=== PATIENT | female | born 1950 | race Caucasian/White ===

== ENCOUNTER 2017-01-30 12:24 | Observation (INO) ==
[2017-01-30] MEDS ORDERED: 0.9 % Sodium Chloride 1,000 ML IVC ONE (12:49)
--- NOTE | 2017-01-30 13:14 | Emergency Department Note ---
Disposition Clinical Impression: Focal neurological deficit TIA (transient ischemic attack) Qualifiers: Transient cerebral ischemia type: unspecified Qualified Code(s): G45.9 - Transient cerebral ischemic attack, unspecified Disposition: Admitted As Inpatient Condition: Fair Time of Disposition: 17:40 Neuro HPI - General Chief Complaint: ED Neuro Symptoms/Deficit Stated Complaint: left sided numbness Time Seen by Provider: 01/30/17 12:27 Source: patient, EMS Limitations: no limitations Nursing Notes Reviewed: Yes Vital Signs Reviewed: Yes - History of Present Illness HPI Narrative: Patient is 66-year-old female who had onset of left arm numbness 2 hours ago. Patient went to urgent care and was sent to the emergency department by EMS. Patient states she never had symptoms like this before. Symptoms came on while patient was at work. Patient is assessed at bedside and has resolution of symptoms upon arrival. NIH score is 0 - Related Data Home Medications: Home Medications Medication Instructions Recorded Confirmed Atorvastatin Calcium [Lipitor] 20 mg PO DAILY 01/30/17 01/30/17 Levothyroxine [Synthroid] 50 mcg PO DAILY 01/30/17 01/30/17 Allergies/Adverse Reactions: Allergies Allergy/AdvReac Type Severity Reaction Status Date / Time No Known Allergies Allergy Verified 01/30/17 11:51 All systems ED: reviewed and negative except as stated. Review of Systems: As Per HPI Constitutional: Denies: fever, chills, weakness, weight change Eyes: Denies: eye pain, eye discharge, vision change ENT ED: Denies: congestion Cardiovascular: Denies: chest pain, palpitations, dyspnea on exertion, edema, syncope Respiratory: Denies: cough, dyspnea, wheezes, hemoptysis, stridor Gastrointestinal: Denies: abdominal pain, nausea, vomiting Genitourinary: Denies: urgency, dysuria Musculoskeletal: Denies: back pain Neurological: Reports: numbness, paresthesias. Denies: headache Endocrine: Denies: fatigue Hematological/Lymphatic: Denies: easy bleeding Past Medical History - Past Medical History Attestation: Yes The following information was validated with the patient. Source: patient Medical history: Reports: hyperlipidemia, thyroid disease Psychiatric history: Reports: no psych history - Social History Smoking Status: Never smoker Smokeless Tobacco Status: No Alcohol use: Reports: none Drug use: Reports: none Physical Exam - General Limitations: no limitations General appearance: alert, in no apparent distress - Head Head exam: atraumatic, normocephalic, normal inspection - Eye Eye exam: Present: normal appearance, PERRL, EOMI - ENT ENT exam: normal exam, normal oropharynx, mucous membranes moist - Neck Neck exam: Present: normal inspection, full ROM, trachea midline - Chest Chest inspection: Present: normal inspection, symmetric chest wall rise - Respiratory Respiratory exam: Present: normal lung sounds bilaterally - Cardiovascular Cardiovascular exam: Present: regular rate, normal rhythm, normal heart sounds - Abdominal Exam Abdominal exam: Present: soft, Non-Tender. Absent: tenderness, distention, guarding, rebound, rigidity - Extremities Exam Extremities exam: Present: normal inspection, full ROM. Absent: tenderness, pedal edema - Back Exam Back exam: Present: normal inspection, full ROM. Absent: tenderness, CVA tenderness (R), CVA tenderness (L) - Neurological Exam Neurological exam: Present: alert, oriented X3 - Skin Skin exam: Present: warm, dry, intact, normal color Course - Reevaluation(s) Reevaluation #1: CT head ordered, CBC, BMP, troponin and EKG ordered chest x-ray Time: 12:33 Reevaluation #2: Patient has sudden onset of left upper extremity weakness and decreased sensation as well as in the left lower extremity with pronator drift without foot hit in the bed. Patient has NIH stroke score of 2. Stroke alert called Time: 12:45 Reevaluation #3: Patient states that she does not want to be transferred. She and likely evaluated here. - Consultations Consultation #1: Stroke alert examination by [facility] Dr. Augustus Estrada, who states that he does not think patient's having a stroke. He is unsure of what the patient is having with recurrence of symptoms. He does not recommend TPA at this time. He states that if patient needs to be evaluated by them they more than happy to evaluate her. Time: 12:58 Consultation #2: Dr. Mace neg stroke negative for hemorrhage findings only for arachnoid cyst most likely old been there long time. Time: 13:19 Consultation #3: Dr. Mejia the hospitalist accepted patient for admission Time: 15:00 Vital Signs Temperature 97.9 F 01/30/17 12:26 Pulse Rate 56 01/30/17 12:26 Respiratory Rate 16 01/30/17 12:26 Blood Pressure 196/102 01/30/17 12:26 O2 Sat by Pulse Oximetry 100 01/30/17 12:26 Temperature 97.7 F 01/30/17 18:41 Pulse Rate 53 01/30/17 18:41 Respiratory Rate 12 01/30/17 18:41 Blood Pressure 177/81 01/30/17 18:41 O2 Sat by Pulse Oximetry 97 01/30/17 18:41 Oxygen Delivery Oxygen Delivery Room Air Neuro Symptoms/Deficit - MDM Narrative Medical decision making narrative: Patient presented with acute onset of numbness to left upper extremity. When received by emergency department patient had no symptoms with INH score 0. Patient's symptoms started 2 large prior. At 1245 hrs. patient had new onset of left upper and left lower extremity numbness with weakness and pronator drift with an NIH score of 2. Stroke alert was called. The patient was sent to CT. Patient was evaluated by [facility]. Decision for TPA was not recommended. Neurologist Dr. Estrada stated that he was not sure of this was a stroke given patient's pattern of symptoms with earlier resolution and then reappearance and then resolution again during evaluation. Patient is given the choice to go to [facility] she was staying here. Patient opted to stay here for evaluation. Patient was admitted for CVA TIA versus stroke and admitted for further evaluation and workup. - Lab Data Result diagrams: 01/30/17 13:22 01/30/17 13:22 Lab Results 01/30/17 01/30/17 01/30/17 Range/Units 12:28 13:22 13:22 WBC 9.5 (4.3-11.1) K/mcL RBC 4.94 (3.82-4.97) M/mcL Hgb 13.5 (11.5-15.4) g/dL Hct 42.4 (35.3-44.9) % MCV 85.8 (83.0-100.0) fL MCH 27.3 L (28.0-33.3) pg MCHC 31.8 (31.6-35.5) g/dL RDW 14.2 (11.5-14.5) % Plt Count 344 (140-400) K/mcL MPV 9.2 L (9.4-12.4) fL Immature Gran % 0.3 (0-4) % Seg Neutrophils % 81.6 % Lymphocytes % 13.7 % Monocytes % 3.8 % Eosinophils % 0.3 % Basophils % 0.3 % Neutrophils # 7.7 (1.6-8.9) K/mcL Lymphocytes # 1.3 (0.6-4.6) K/mcL Monocytes # 0.4 (0.0-1.3) K/mcL Eosinophils # 0.0 (0.0-0.6) K/mcL Basophils # 0.0 (0.0-0.2) K/mcL Sodium 136 (136-145) mEq/L Potassium 3.9 (3.5-4.5) mEq/L Chloride 102 (98-109) mEq/L Carbon Dioxide 28 (19-29) mEq/L BUN 26 H (7-20) mg/dL Creatinine 0.76 (0.57-1.11) mg/dL Est GFR ( Amer) > 60 (> 60) Est GFR (Non-Af Amer) > 60 (> 60) BUN/Creatinine Ratio 34 H (6-26) Glucose 104 H (70-99) mg/dL POC Glucose 100 H (58-89) Calculated Osmolality 287 (280-300) Calcium 10.0 (8.6-10.8) mg/dL Troponin I (0-0.03) ng/mL 01/30/17 Range/Units 13:22 WBC (4.3-11.1) K/mcL RBC (3.82-4.97) M/mcL Hgb (11.5-15.4) g/dL Hct (35.3-44.9) % MCV (83.0-100.0) fL MCH (28.0-33.3) pg MCHC (31.6-35.5) g/dL RDW (11.5-14.5) % Plt Count (140-400) K/mcL MPV (9.4-12.4) fL Immature Gran % (0-4) % Seg Neutrophils % % Lymphocytes % % Monocytes % % Eosinophils % % Basophils % % Neutrophils # (1.6-8.9) K/mcL Lymphocytes # (0.6-4.6) K/mcL Monocytes # (0.0-1.3) K/mcL Eosinophils # (0.0-0.6) K/mcL Basophils # (0.0-0.2) K/mcL Sodium (136-145) mEq/L Potassium (3.5-4.5) mEq/L Chloride (98-109) mEq/L Carbon Dioxide (19-29) mEq/L BUN (7-20) mg/dL Creatinine (0.57-1.11) mg/dL Est GFR ( Amer) (> 60) Est GFR (Non-Af Amer) (> 60) BUN/Creatinine Ratio (6-26) Glucose (70-99) mg/dL POC Glucose (58-89) Calculated Osmolality (280-300) Calcium (8.6-10.8) mg/dL Troponin I 0.00 (0-0.03) ng/mL - EKG Data EKG attestation: Yes I reviewed and interpreted this EKG. EKG results narrative: EKG taken 01/30/2017 at 12:30 7R shows sinus bradycardia at a rate of 55 beats minute no acute ST elevations or depressions in leads, no QRS widening or QT prolongation, no Wellens, brugada, or scarbosa, and no S1Q3T3. No previous old EKGs for comparison. 12-lead performed by EMS shows sinus rhythm at a rate of 58 beats a minute and he ST elevations or depressions in leads no signs ischemia. NIH Stroke Scale - Level of Consciousness LOC: Alert - LOC Questions LOC Questions: Answers both correctly - LOC Commands LOC Commands: Performs both correctly - Best Gaze Best Gaze: Normal - Visual Visual: No visual loss - Facial Palsy Facial Palsy: Normal - Motor Arms Motor Arm-Left: No drift for 10 seconds Motor Arm-Right: No drift for 10 seconds - Motor Legs Motor Leg-Left: Drift, does NOT hit bed Motor Leg-Right: No drift for 5 seconds - Limb Ataxia Limb Ataxia: Absent of affected limb too weak to perform exam - Sensory Sensory: Mild to moderate loss, "not as sharp" - Best Language Best Language: No aphasia - Dysarthria Dysarthria: Normal - Extinction and Inattention Extinction and Inattention: Normal - NIHSS Total Score NIHSS Total Score: 2 TPA Checklist - LKW: 3-4.5 hrs Add. Warnings/Precautions Patient/family understanding: The patient/family members have been counseled and understood the risk, benefit , and alternatives of treatment.
[2017-01-30 13:33] LABS: Basophils % 0.3 %; Eosinophils % 0.3 %; Hematocrit 42.4 % (35.3-44.9); Hemoglobin 13.5 g/dL (11.5-15.4); Immature Granulocytes % 0.3 % (0-4); Lymphocytes # 1.3 K/mcL (0.6-4.6); Lymphocytes % 13.7 %; Mean Corpuscular HGB Conc 31.8 g/dL (31.6-35.5); Mean Corpuscular Hemoglobin 27.3 pg (28.0-33.3); Mean Corpuscular Volume 85.8 fL (83.0-100.0); Mean Platelet Volume 9.2 fL (9.4-12.4); Monocytes # 0.4 K/mcL (0.0-1.3); Monocytes % 3.8 %; Neutrophils # 7.7 K/mcL (1.6-8.9); Platelet Count 344 K/mcL (140-400); Red Blood Count 4.94 M/mcL (3.82-4.97); Red Cell Distribution Width 14.2 % (11.5-14.5); Segmented Neutrophils % 81.6 %
[2017-01-30 13:42] LABS: BUN/Creatinine Ratio 34 (6-26); Blood Urea Nitrogen 26 mg/dL (7-20); Carbon Dioxide 28 mEq/L (19-29); Chloride 102 mEq/L (98-109); Glucose 104 mg/dL (70-99); Osmolality,Calculated 287 (280-300); Potassium 3.9 mEq/L (3.5-4.5); Sodium 136 mEq/L (136-145); eGFR For African Americans > 60 (> 60); eGFR For Non-African Americans > 60 (> 60)
[2017-01-30] MEDS ORDERED: Ondansetron 4 MG/2 ML VIAL IVP PRN (16:17)
[2017-01-30] MEDS ORDERED: Naloxone 0.4 MG/ML INJ IVP PRN (16:17)
[2017-01-30] MEDS ORDERED: Acetaminophen 325 MG TABLET PO PRN (16:17)
--- NOTE | 2017-01-30 16:33 | Internal Med History&Physical ---
Date of Encounter: 01/30/17 Time of Encounter: 16:25 Assessment and Plan (1) Paresthesia and pain of left extremity Current visit: Yes Status: Acute Patient had sudden onset of left-sided paresthesia both left arm and left leg as well extending up to the left side of her face, symptoms come and go. - Stroke alert was called she was seen by enterocele physician the TPA at this time continued workup- CT of her head was negative, we will obtain MRI MRA of head and neck 2 we will obtain cardiac echo 3 carotid Dopplers 4 neuro checks 5 fall precautions 6 trend cardiac troponins 7 continue his cardiac monitoring 8 lipid profile continue a statin 9 continue with aspirin (2) Hypothyroid Current visit: No Status: Chronic Continue with Synthroid Qualifiers: Hypothyroidism type: unspecified Qualified Code(s): E03.9 - Hypothyroidism , unspecified (3) DVT prophylaxis Current visit: No Status: Chronic Lovenox subcutaneous Internal Medicine - H&P: HPI Chief complaint: Numbness and tingling Admitted From: Emergency Dept Plans for Post Hospital Care: Home History of present illness: Ms. Miranad is a 66 year old female past medical history of hypothyroid DJD hypercholesterolemia, family history of aneurysm. According to the patient she has been her usual state of health complete her normal ADLs this a.m. She was at her place of employment and was working at her desk when approximately at 10 AM she began to experience left-sided numbness and tingling. She feels as if her arm was asleep and there were pins and needles. She did get up to attempt to ambulate the sensation continued she did experience some shortness of breath midsternal chest tightness and lightheadedness. She did lie down on the floor and rested. Her symptoms subsided for a few minutes, however they returned she states she did have some difficulty speaking and her coworkers became concerned and encouraged her to be evaluated. She went to an urgent care that transported her to ER for evaluation. Once arriving to the ER patient did have an elevated blood pressure 190 systolic. She had sudden onset of left upper axillary weakness and decreased sensation as well as lower extremity pronator drift. NIH score was 2 stroke alert was called. Stroke alert examination completed by [facility] physician who advised that he did not think the patient was having a stroke and did not recommend TPA at this time. Recommends further workup. CT of head negative for hemorrhage findings only arachnoid cyst which is old. Lab work was unremarkable troponin was 0 EKG was sinus bradycardia no ST-T wave abnormalities. She has been admitted for further workup and evaluation. Presently the patient is ambulating around the room without difficulty Romberg was negative cranial nerves II through XII are intact she is alert and appropriate no slurred speech no facial droop no pronator drift. She does complain of complete left sided numbness and tingling from her face all the way down to her feet. Describing it as pins and needles. Her lung sounds are clear heart sounds are regular S1 and S2 with no rubs clicks, murmurs noted abdomen soft and nontender no pedal edema. She has equal strength in all 4 extremities. She is hemodynamically stable at this time. I reviewed this case with Dr. Banuelos who agrees with plan. Past Med Surg Social Fam HX - Past Medical History Medical history: hyperlipidemia, thyroid disease Psychiatric history: no psych history - Social History Smoking Status: Never smoker Smokeless Tobacco Status: No Alcohol use: none Drug use: none - Family History Father Living Status: Cause of : HTN Mother Living Status: Still Living Hx Family Cardiac Disorders: Yes (Hypertension stroke) Internal Medicine - H&P: Meds Atorvastatin Calcium [Lipitor] 20 mg PO DAILY 01/30/17 [History] Levothyroxine [Synthroid] 50 mcg PO DAILY 01/30/17 [History] 3 Allergy/AdvReac Type Severity Reaction Status Date / Time No Known Allergies Allergy Verified 01/30/17 11:51 All Systems PM: A 10-system review of systems was performed and is negative for pertinent findings except as documented above in the HPI. - Constitutional Constitutional: no chills, no fever(s), no night sweats - EENT Eyes: no change in vision, no discharge, no pain, no photophobia Nose, mouth and throat: as per HPI - Cardiovascular Cardiovascular ROS IM: chest pain, no diaphoresis, no dyspnea, no lightheadedness, no palpitations, no syncope - Respiratory Respiratory: dyspnea, no cough, no wheezing, no excessive phlegm production - Gastrointestinal Gastrointestinal: no abdominal pain, no diarrhea, no hematemesis, no hematochezia, no melena, no nausea, no vomiting - Genitourinary Genitourinary: no change in urinary stream, no dysuria, no flank pain, no hematuria - Musculoskeletal Musculoskeletal ROS IM: tingling, no numbness - Neurological Neurological ROS: numbness, paresthesias, tingling - Hematologic/Lymphatic Hematologic/Lymphatic: no easy bruising - Constitutional Vitals: Temp Pulse Resp BP Pulse Ox 98.0 F 55 16 173/82 98 01/30/17 16:22 01/30/17 16:22 01/30/17 16:22 01/30/17 16:22 01/30/17 16:22 General appearance: Present: A&O X 3, answers questions appropriately - Head Head exam: Present: atraumatic, normocephalic - Eye Eye exam: Present: PERRL, conjuntiva pink, sclera anicteric Pupils: Present: PERRL - Neck Neck exam general surgery: Present: supple, trachea midline. Absent: lymphadenopathy - Respiratory Respiratory exam: Present: CTAB. Absent: accessory muscle use, rales, rhonchi, wheezes - Cardiovascular Cardiovascular exam: Present: RRR, +S1, +S2. Absent: diastolic murmur, gallop, rubs, systolic murmur - GI/Abdominal GI/Abdominal exam: Present: normal bowel sounds, soft, no peritoneal signs. Absent: distended, tenderness - Extremities Exam Extremities exam: Present: warm, radial pulses palpable and symmetrical. Absent : calf tenderness, cyanotic, pedal edema - Neurological Exam Neurological exam: Present: alert, CN II-XII intact, normal gait, oriented X3, no focal deficits, strengths equal and symetr throughout. Absent: pronater drift, facial droop, speech deficit - Skin Skin exam: Present: dry, intact Internal Med - H&P Results - Labs CBC & Chem 7: 01/30/17 13:22 01/30/17 13:22 - EKG Data EKG shows normal: sinus rhythm Rate: bradycardia - EKG Data Prior EKG available for review: no - Diagnostic Studies Other Images Additional comments: Head CT 01/30/17 12:27 IMPRESSION: 1. No acute intracranial abnormality. 2. 3.4 cm focus of CSF attenuation within the extra-axial space of the left middle cranial fossa, most consistent with a benign arachnoid cyst. Findings were discussed with Carlos Mayer at 1:20 pm on 01/30/2017. D/ / Cristian Gatica MD / Cristian Gatica MD Interpreting Provider: Cristian Gatica MD Chest X-Ray 01/30/17 12:51 IMPRESSION: No acute cardiopulmonary findings. D/ / Camille Childers MD / Camille Childers MD Interpreting Provider: Camille Childers MD
--- NOTE | 2017-01-30 16:52 | Emergency Department Note ---
START Narrative - START START: I examined this patient and my medical decision-making was reviewed with the Resident Physician. I agree with the documented findings, disposition and treatment plan as described except to the extent set forth below. Transient neurologic symptoms and will resolve on arrival, the recurred, and spontaneously resolved again. NIH stroke score of 0 at the time of admission. Dx TIA.
[2017-01-30] MEDS ORDERED: Aspirin 325 MG TABLET PO ONE (20:49)
--- NOTE | 2017-01-30 21:04 | Event Note ---
Date of Encounter: 01/30/17 Time of Encounter: 20:58 MRI/MRA of head was completed notified as per nursing staff that patient has a cute microinfarct within the milagros. Present her blood pressure is 177/81 she continues to experience paresthesia. I did notify Dr. Stanley he states he will see the patient tomorrow and continue with aspirin and statin for now. I also updated Dr. Horton change of condition
[2017-01-31 05:06] LABS: Basophils % 0.3 %; Eosinophils # 0.2 K/mcL (0.0-0.6); Eosinophils % 2.5 %; Hematocrit 36.2 % (35.3-44.9); Immature Granulocytes % 0.3 % (0-4); Lymphocytes # 2.3 K/mcL (0.6-4.6); Lymphocytes % 33.1 %; Mean Corpuscular HGB Conc 32.6 g/dL (31.6-35.5); Mean Corpuscular Hemoglobin 28.1 pg (28.0-33.3); Mean Corpuscular Volume 86.2 fL (83.0-100.0); Mean Platelet Volume 9.6 fL (9.4-12.4); Monocytes # 0.5 K/mcL (0.0-1.3); Monocytes % 7.5 %; Neutrophils # 3.9 K/mcL (1.6-8.9); Platelet Count 306 K/mcL (140-400); Red Cell Distribution Width 14.4 % (11.5-14.5); Segmented Neutrophils % 56.3 %
[2017-01-31 05:15] LABS: Hemoglobin 11.8 g/dL (11.5-15.4)
[2017-01-31 05:27] LABS: BUN/Creatinine Ratio 24 (6-26); Blood Urea Nitrogen 17 mg/dL (7-20); Calcium 8.8 mg/dL (8.6-10.8); Carbon Dioxide 24 mEq/L (19-29); Chloride 109 mEq/L (98-109); Chol/HDL Ratio 2.3 (0-4.9); Cholesterol 127 mg/dL (< 200); Glucose 112 mg/dL (70-99); HDL Cholesterol 55 mg/dL (40-59); LDL Cholesterol,Calculated 64 mg/dL (0-99); Osmolality,Calculated 294 (280-300); Potassium 3.4 mEq/L (3.5-4.5); Sodium 141 mEq/L (136-145); Triglycerides 41 mg/dL (< 150); eGFR For African Americans > 60 (> 60); eGFR For Non-African Americans > 60 (> 60)
[2017-01-31] MEDS ORDERED: *HR* Enoxaparin 40 MG/0.4 ML SYRINGE SQ SCH (07:00)
--- NOTE | 2017-01-31 07:04 | Carotid Imaging Report ---
Carotid Duplex Patient Name:Thania Miranda Order Number:[id number] Procedure Date:01/30/2017 Date:1950ge:66 yrs Gender:Female Lt BP:173 / 82 mmHg Rt.BP:173 / 82 mmHgHeart Rate: Location:[facility] Room #: 3B32 Tour Agent:Elizabeth Banks ZACH Referring MD:Leigh Ann Hargrove CNP rpg programmer analyst:Raymond Peters MD Reading MD:Sadi Clemente MD Primary Indications:Numbness tingling on left side Risk Factors Yes/No Hypercholesterolemia Impressions: The right internal carotid artery has a 60-79% stenosis. The left carotid artery is normal throughout. Recommendations: Risk factor reduction. Further evaluation recommended if clinically indicated. Follow-up carotid duplex in 1 year. Findings Carotid Duplex: Right: There is nonstenotic plaque in the right proximal internal carotid artery. There is smooth heterogeneous plaque. There is 40-59% stenosis in the right mid internal carotid artery. There is smooth homogeneous plaque. There is 60-79% stenosis in the right distal internal carotid artery. There is smooth homogeneous plaque. Prior Study: No prior study available for comparison. Carotid Results Right PSV EDV Assessment Proximal CCA 76 12 Normal Mid CCA 70 17 Normal Distal CCA 50 14 Normal Bifurcation 46 14 Normal Proximal ICA 49 16 Non Stenotic Plaque Mid ICA 124 37 40-59% stenosis Distal ICA 140 44 60-79% stenosis ECA 66 9 Normal Vertebral Artery 66 17 Antegrade Flow Left PSV EDV Assessment Proximal CCA 76 18 Normal Mid CCA 63 16 Normal Distal CCA 58 19 Normal Bifurcation 60 20 Normal Proximal ICA 46 19 Normal Mid ICA 77 30 Normal Distal ICA 106 40 Normal ECA 67 9 Normal Vertebral Artery 79 24 Antegrade Flow Ratio's Right ICA/CCA Ratio: 2.00 ICA/CCA Values: 140/70 Left ICA/CCA Ratio: 1.68 ICA/CCA Values: 106/63 Updated by Sadi Clemente MD on 01/31/2017 6:59:44 AM electronically signed on 01/31/2017 6:59:55 AM with status of Final
[2017-01-31] MEDS ORDERED: Aspirin 81 MG TAB.CHEW PO SCH (09:00)
--- NOTE | 2017-01-31 13:04 | Neurology - Consult Note ---
Date of Encounter: 01/31/17 Time of Encounter: 13:00 Assessment and Plan (1) Brainstem infarct, acute Current Visit: Yes Status: Acute It is my impression that her acute symptoms are due to the acute infarct in the right milagros. I suspect that the event occurred due to reactive vasospasm associated with the extreme hypertension. There is however a discrepancy between the carotid Doppler study; which reveals 60-79% stenosis of the right internal carotid artery, the MRA scan of the neck makes no mention of stenosis. I feel however that it is reasonable to believe that the symptoms were indeed secondary to the pontine infarct, and not due to ischemia involving the anterior circulation associated with the right internal carotid artery stenosis. Certainly aggressive management of her hypertension is paramount. I will have recommended vascular evaluation to sort out the discrepancy between the 2 studies, as well as to make recommendations regarding long-term treatment options. For now I would simply recommend aspirin 81 mg daily, maintain statin therapy. I would expect that she should make a full recovery at least with regard to motor functions. History of Present Illness HPI: Ms. Miranda is a 66 year old female who was seen for neurologic evaluation secondary to numbness and paresthesias involving the left face arm and leg. Symptoms occurred initially yesterday while she was at work. She was having a normal day at the time when she suddenly experienced paresthesias of the left face arm and leg. She states that initially she laid down on the floor and the symptoms resolved after few minutes. Then she got up and resumes her work. Then a few moments later she experienced same symptoms and became a bit more alarmed. She then came to [facility] for further assessment. Upon arrival her blood pressure was 196/102. Stroke alert was called and the patient was placed on the robot and evaluated by the [facility] stroke team. At that time to determine that the patient was not a candidate for TPA. She was admitted here for further assessment. She denied any denied visual changes. She does however have a history of hypertension and hyperlipidemia. Both of her parents have peripheral artery disease. However she is avid about her health, and she looks much younger than her stated age. She still has some residual paresthesias of the left hand. She also feels a bit clumsy when she walks. MRI scan of the brain reveals a small acute infarct in the right milagros. Carotid Doppler study reveals right internal carotid artery stenosis ranging between 60-79%. However MRA scan of the neck makes no mention of carotid artery stenosis. She denies cigarette smoking. Past Med Surg Social Fam HX - Past Medical History Medical history: hyperlipidemia, thyroid disease Psychiatric history: no psych history - Past Surgical History Surgical History: appendectomy, hip replacement - Social History Smoking Status: Never smoker Smokeless Tobacco Status: No Alcohol use: none Drug use: none - Family History Father Living Status: Cause of : HTN Mother Living Status: Still Living Hx Family Cardiac Disorders: Yes (Hypertension stroke) Medications and Allergies Atorvastatin Calcium [Lipitor] 20 mg PO DAILY 01/30/17 [History] Levothyroxine [Synthroid] 50 mcg PO DAILY 01/30/17 [History] 3 Allergy/AdvReac Type Severity Reaction Status Date / Time No Known Allergies Allergy Verified 01/30/17 11:51 All Systems: A 10-system review of systems was performed and is negative for pertinent findings except as documented above in the HPI. Review of Systems: Review of systems is consistent with a history of present illness and otherwise negative. Physical Examination - Vital Signs Vital Signs: Initial Vital Signs Temp Pulse Resp BP Pulse Ox 97.9 F 56 16 196/102 100 01/30/17 12:26 01/30/17 12:26 01/30/17 12:26 01/30/17 12:26 01/30/17 12:26 - Neurologic Detailed motor examination: full strength in all major muscle groups Motor examination - right side: 5/5: deltoids, biceps, triceps, wrist flexion, wrist extension, hourly caregiver, hip flexors, tibialis Anterior, quadriceps, toe extension (EHL), plantarflexion Motor examination - left side: 4/5: tibialis Anterior, toe extension (EHL), 5/5 : deltoids, biceps, triceps, wrist flexion, wrist extension, hip flexors, hourly caregiver, quadriceps, plantarflexion Detailed sensory examination: other (There is hypoesthesia of the left face arm and leg.) Reflexes: Biceps: 2+, Triceps: 2+, Brachioradialis: 2+, Patella: 2+, Achilles: 2 + Mental Status Examination: awake, alert, oriented to person, oriented to place, oriented to time, follows commands appropriately, answers questions appropriately, no agnosia, no aphasia, no aproxia Cranial nerve examination: PERRL, EOMI, visual cuadra intact, corneal reflexes brisk symmetrically, sensory to face intact, mastication intact, no facial asymmetry is present, no dysarthria, hearing is intact symmetrically, soft palate elevates bilaterally upon phonation, gag reflex intact, flexes SCM and trapezius muscles symmetrically with full power, tongue protrudes midline, no atrophy or facial fasiculations present Cerebellar examination: no dysmetria, performs finger to nose and heel to lance symmetrically without ataxia, no truncal ataxia, no difficulty with rapid alternating movements Results - Laboratory Findings CBC and BMP: 01/31/17 04:23 01/31/17 04:23 Abnormal lab findings: Abnormal lab results Potassium 3.4 mEq/L (3.5-4.5) L 01/31/17 04:23 Glucose 112 mg/dL (70-99) H 01/31/17 04:23 POC Glucose 100 (58-89) H 01/30/17 12:28 Consult Discharge Plan - Plan Referrals: NONE,PCP [Primary Care Provider] -
[2017-01-31 15:18] VITALS: BP 146/74
--- NOTE | 2017-01-31 15:44 | Discharge Summary ---
Date of Encounter: 01/31/17 Time of Encounter: 15:39 - Discharge Diagnosis (1) Brainstem infarct, acute Priority: Primary Status: Acute (2) Paresthesia and pain of left extremity Priority: Secondary Status: Acute (3) Hypothyroid Priority: Secondary Status: Chronic Qualifiers: Hypothyroidism type: unspecified Qualified Code(s): E03.9 - Hypothyroidism , unspecified - Discharge Medications Prescriptions: Aspirin/Dipyridamole [Aspirin-Dipyridam ER 25-200 mg] 1 each PO BID #60 cpmp.12hr Home Medications: Atorvastatin Calcium [Lipitor] 20 mg PO DAILY 01/30/17 [History] Levothyroxine [Synthroid] 50 mcg PO DAILY 01/30/17 [History] Aspirin/Dipyridamole [Aspirin-Dipyridam ER 25-200 mg] 1 each PO BID #60 cpmp.12hr 01/31/17 [Rx] Allergies/Adverse Reactions: 3 Allergy/AdvReac Type Severity Reaction Status Date / Time No Known Allergies Allergy Verified 01/30/17 11:51 Procedures/tests Complete & Pending: Procedures Performed prior 72 hours Category Date Time Status CT angio neck [CT] Stat Cat Scan 01/31/17 13:45 Draft MR angio head wo con [MR] Routine MRI 01/30/17 16:47 Completed MR angio neck wo/w con [MR] Routine MRI 01/30/17 16:47 Completed MR head/brain wo con [MR] Routine MRI 01/30/17 16:47 Completed EV carotid duplex imaging BI Routine Y 01/30/17 16:22 Completed EV echocardiogram Routine Y 01/30/17 16:23 Completed - Notes to Outpatient Provider Please review 2-D echocardiogram findings and repeat limited echocardiogram In 2 -3 months to follow up on small effusion around right atrium. Date of admission: 01/30/17 15:21 Primary care physician: PCP NONE Consults: 01/30/17 20:50 Consult to Neurology [CONS] Routine Consulting Provider: [facility] Reason for Consult: micro infarct r hemipons Time Notified: 20:52 Call Completed: Yes 01/30/17 21:07 Consult to Physical Therapy [CONS] Routine Comment: Evaluate, develop and implement POC Reason for Consult: weakness CVA 01/30/17 21:08 Consult to Occupational Therapy [CONS] Routine Comment: Evaluate, develop and implement POC Reason for Consult: weakness CVA Discharging clinician: Wanda Stephens Anticipated date of discharge: 01/31/17 - Patient Status Disposition: Home, Self-Care Condition: Good Functional capacity at discharge: independent ambulation Overall status at discharge: patient is progressing back to baseline - Discharge Instructions Instructions: Ischemic Stroke (DC), Brain Stem Infarction (DC) Follow Up With: Raymond Peters MD [Partnered Physician] - (hospital follow up appointment web requested. office will call at home with date and time of appointment. ) Sadi Clemente MD [Partnered Physician] - (follow up appointment web requested. office will call with date and time of appointment. ) Joshua Stanley DO [Partnered Physician] - (hospital follow up web requested. office will call with date and time of appointment. ) - Diet and Activity Activity: increase activity as tolerated Diet: diabetic diet, low fat, low cholesterol, low salt diet Hospital course: Ms. Miranda is a 66 year old female patient with a history of hyperlipidemia and thyroid disease presented to the ER with complaints of left-sided numbness and tingling that began at 10 AM yesterday. She was brought to the ER and stroke alert was called. After evaluation relatively stroke team, it was decided to observe the patient and continue stroke workup for possible TIA. MRI of the brain was done which showed an acute microinfarct in the milagros. Neurology was consulted and they recommended placing patient on aspirin and statin. Patient already takes baby aspirin and so she will be placed on Aggrenox and continue to take statin because her cholesterol levels appear to be at goal. Carotid Dopplers of the neck were done which showed 60-79% stenosis in the right internal carotid artery region. However MRA and CT angiogram of the neck vessels did not confirm these findings. Nevertheless, the patient will refer to vascular surgery for follow-up as outpatient. Presently the patient is feeling much better. Her left-sided florencio-anesthetic symptoms seem to be improving already. She will be discharged today and will follow up with her primary care provider and neurologist for further management. A 2-D echocardiogram was also done which showed an EF of 60%. There was also small effusion noted on right atrium which was of no hemodynamic significance. Patient did have mild frontal her diastolic dysfunction and mild pulmonary hypertension. She can be followed with limited repeat echo as outpatient in 2- 3 months to look for resolution. - Time Spent with Patient Total time spent providing and/or coordinating discharge services: Greater than 30 minutes (32 min) - Constitutional Vitals: Temp Pulse Resp BP Pulse Ox 98.6 F 60 16 146/74 98 01/31/17 15:17 01/31/17 15:17 01/31/17 15:17 01/31/17 15:17 01/31/17 15:17 General appearance: Present: A&O X 3, answers questions appropriately - Neck Neck exam general surgery: Present: supple, trachea midline. Absent: lymphadenopathy - Cardiovascular Cardiovascular exam: Present: RRR, +S1, +S2. Absent: diastolic murmur, gallop, rubs, systolic murmur - GI/Abdominal GI/Abdominal exam: Present: normal bowel sounds, soft, no peritoneal signs. Absent: distended, tenderness - Neurological Exam Neurological exam: Present: CN II-XII intact, oriented X3, no focal deficits, strengths equal and symetr throughout. Absent: facial droop, speech deficit Additional comments: Improving sensation in left lower extremity. This sensation still decreased in left hand - Skin Skin exam: Present: dry, intact
--- NOTE | 2017-01-31 16:58 | Electrocardiograph Report ---
[address] [place] [address] Test Date: 2017-01-30 Pat Name: Thania Miranda Department: 102 Room: 3B32 Gender: F Information Services Consultant: : 1950 Requested By: Carlos Mayer Order Number: [id number] Reading MD: Dylan Bates DO Measurements Intervals Thornton Rate: 55 P: 57 OK: 163 QRS: 14 QRSD: 91 T: 37 QT: 454 QTc: 443 Interpretive Statements SINUS BRADYCARDIA Possible left ventricular hypertrophy Electronically Signed On 01-31-2017 16:56:31 EDT by Dylan Bates DO
== END 2017-01-31 17:44 | disposition home or self-care (01) ==
LOC: EMEROO 12:24 → 3BNU 12:24 → SUATTDRO 15:21 → 3BNU 15:55
PROVIDERS: ADMIT Internal Medicine; ATTEND Internal Medicine